=== PATIENT | male | born 1965 | race Caucasian/White ===

== ENCOUNTER 2016-06-13 20:53 | Emergency (ER) | payer OTHER, MEDICAID ==
--- NOTE | 2016-06-14 14:05 | Emergency Room Report ---
History of Present Illness General Chief Complaint: To Be Triaged Present Illness Allergies: Coded Allergies: DOXORUBICIN (Verified Allergy, Unknown, 01/03/09) LATEX (Verified Allergy, Unknown, 01/03/09) MORPHINE (Verified Allergy, Unknown, 08/02/08) PAROXETINE (Verified Allergy, Unknown, 08/02/08) Medical Decision Making Diagnostic Impression: Primary Impression: LWBS ER Course patient left prior to triage or MD evaluation Status: unchanged Disposition: LEFT W/OUT BEING SEEN Condition: Unknown Referrals: NOT CHOSEN IPA/,REFERRING (PCP) RAMIREZ PERKINS M.D. Jun 14, 2016 14:05
== END 2016-06-13 21:25 | disposition left against medical advice (07) ==
LOC: EMR 21:25
DX: M54.5 Low back pain (principal); Z53.21 Procedure and treatment not carried out due to patient leaving prior to being seen by health care provider

== ENCOUNTER 2019-09-16 04:39 | Emergency (ER) | payer MEDICARE, MEDICAID ==
[~2019-09-16] VITALS: Ht 180.3 cm; Wt 77.1 kg
--- NOTE | 2019-09-16 04:45 | NUR ---
ED Nurse Note: Pt ambulated to ED from home c/o swelling/redness/pain in R hand/thumb x3days. pt reports it started as a "pimple" like sore and has worsened. denies injury or fever. ERMD at bedside, VSS
[2019-09-16] MEDS ORDERED: CLINDAMYCIN HC150 MG ORAL (04:57)
[2019-09-16] MEDS ORDERED: Clindamycin 600mg 50 ML IVPB ONE (05:00)
--- NOTE | 2019-09-16 05:05 | Emergency Room Report ---
History of Present Illness General Chief Complaint: Upper Extremity Injury Source: Patient Present Illness HPI Disclaimer: Please note that this report is being documented using DRAGON technology. This can lead to erroneous entry secondary to incorrect interpretation by the dictating instrument. HPI: 54-year-old male history of HIV presents for evaluation of a finger infection. Patient states he popped a pimple or an ingrown hair over the proximal phalanx, dorsal aspect of the right middle finger. So there is some purulent drainage which is now stopped. Worsening swelling and redness now tracking down to the MCP J of the right index finger. Still able to flex and extend the digit. No tenderness or swelling over the volar aspect. Denies numbness or tingling. No other injury reported. PMH: HIV PSH: Reviewed Allergies: Morphine, opiates, paroxetine, latex Social Hx: THC Allergies: Coded Allergies: DOXORUBICIN (Verified Allergy, Unknown, 01/03/09) LATEX (Verified Allergy, Unknown, 01/03/09) MORPHINE (Verified Allergy, Unknown, 08/02/08) PAROXETINE (Verified Allergy, Unknown, 08/02/08) COVID-19 Screening Contact w/high risk pt: No Recent Travel to affected area: No Experienced COVID-19 symptoms?: No Nursing Documentation-PMH Past Medical History: No History, Except For Hx Hypertension: Yes Review of Systems All Other Systems: negative except mentioned in HPI Physical Exam Vital Signs Date Time Temp Pulse Resp B/P (MAP) Pulse Ox O2 Delivery O2 Flow Rate FiO2 20 04:41 98.1 98 22 124/90 (101) 96 Room Air General: Awake and alert, no acute distress HEENT: NC/AT. EOMI. Resp: Normal work of breathing Skin: There is a 1 x 1 cm area of erythema and edema over the dorsal/radial aspect of the proximal phalanx of the right index finger. Tender to palpation and warm to the touch. There is an overlying pustule that is been ruptured without active drainage. MSK: Normal tone and bulk. Moving all extremities. No obvious deformity. Neuro: Awake and alert. Mentating appropriately Medical Decision Making Diagnostic Impression: Primary Impression: Cellulitis of hand ER Course 54-year-old male presents for evaluation of right finger pain and swelling. History and exam consistent with a cellulitis. No evidence of flexor tenosynovitis as the swelling is all in the dorsal compartment. Looks like this pustule is already ruptured and the wound was draining prior. No fluctuance or obvious deep abscess. The patient will be started on antibiotics and discharged to follow-up with orthopedics. Patient has an orthopedic surgeon he can follow-up with. Discussed reasons to return to the emergency department. Is otherwise well-appearing and stable for outpatient follow-up. He understands and agrees with treatment plan. Last Vital Signs Date Time Temp Pulse Resp B/P (MAP) Pulse Ox O2 Delivery O2 Flow Rate FiO2 09/16/19 04:41 98.1 98 22 124/90 (101) 96 Room Air Disposition: HOME, SELF-CARE Condition: Stable Scripts Clindamycin Hcl* (CLINDAMYCIN HCL*) 150 Mg Capsule 450 MG ORAL TID for 7 Days, #63 CAP Prov: Estiven Miguel MD 09/16/19 [facility] 24 hour /7 days a week by Appointment Only [address] [facility] [address] [facility] [id number] Patient Instructions: Cellulitis Additional Instructions: Take the antibiotics as instructed. If symptoms fail to improve in the next 24 to 48 hours proceed immediately to emergency department for reevaluation. Otherwise, follow-up with your primary care doctor in the next week for reevaluation. Estiven Miguel MD September 16, 2019 05:05
[2019-09-16 05:40] VITALS: BP 124/90
--- NOTE | 2019-09-16 05:40 | NUR ---
ER DISCHARGE NOTE: Patient is cleared to be discharged per ERMD, pt is aox4, on room air, with stable vital signs. pt was given dc and prescription instructions, pt was able to verbalize understanding, pt id band removed. pt is able to ambulate with steady gait. pt took all belongings.
[2019-09-16] MEDS ORDERED: LORazepam 1mg tab ORAL ONE (05:45)
[2019-09-16] MEDS ORDERED: Clindamycin 150mg cap ORAL SCH (06:00)
== END 2019-09-16 05:40 | disposition home or self-care (01) ==
LOC: EMR 04:55
DX: L03.011 Cellulitis of right finger (principal); I10 Essential (primary) hypertension; B20 Human immunodeficiency virus [HIV] disease; Z88.6 Allergy status to analgesic agent; Z91.040 Latex allergy status
CPT/HCPCS: 99282